=== PATIENT | male | born 1975 | race Two or more races ===

== ENCOUNTER 2018-04-05 15:15 | Emergency (ER) | payer OTHER ==
[~2018-04-05] VITALS: Ht 175.3 cm; Wt 78.0 kg
[2018-04-05] MEDS ORDERED: XANAX0.25 MG PO (17:07)
== END 2018-04-05 17:11 | disposition home or self-care (01) ==
LOC: ER 15:15
DX: R00.2 Palpitations (principal); F06.4 Anxiety disorder due to known physiological condition